=== PATIENT | male | born 2000 | race Hispanic/Latino ===

== ENCOUNTER 2018-04-24 18:56 | Emergency (ER) | payer OTHER, SELFPAY ==
[2018-04-24] MEDS ORDERED: Lidocaine 1% PF 5 ML VIAL ONE (19:22)
[2018-04-24] MEDS ORDERED: Adacel (T-DAP) 0.5 ML VIAL ONE ×2 (19:22→19:34)
--- NOTE | 2018-04-24 19:40 | RAD ---
RIGHT THUMB THREE VIEWS: HISTORY: Pain. FINDINGS: There is a radiopaque foreign body at the level of the proximal interphalangeal joint space, in the s uperficial soft tissues, measuring 5 mm. There is no fracture. IMPRESSION: Radiopaque foreign body. POS: [facility]
--- NOTE | 2018-04-24 19:58 | RAD ---
LEFT THUMB THREE VIEWS: HISTORY: Interval removal of foreign body. FINDINGS: Previously noted foreign body is not appreciated. No joint effusion. No fracture. No cortical irregularity or periosteal reaction. IMPRESSION: Interval removal of foreign body. POS: [facility]
== END 2018-04-24 20:16 | disposition home or self-care (01) ==
LOC: ERS 18:56
DX: S61.041A Puncture wound with foreign body of right thumb without damage to nail, initial encounter (principal); F17.210 Nicotine dependence, cigarettes, uncomplicated; X58.XXXA Exposure to other specified factors, initial encounter
CPT/HCPCS: 64450; 90471; 90715; J2001